=== PATIENT | male | born 1975 | race Caucasian/White ===

== ENCOUNTER → 2018-12-16 15:09 | Outpatient (CLI) | payer BC, SELFPAY ==
--- NOTE | 2018-12-16 15:11 | RAD_ITS ---
STUDY: X-RAY - LEFT KNEE REASON FOR EXAM: Male, 43 years old. Pain after a fall TECHNIQUE: 4 view(s) of the knee. COMPARISON: None. FINDINGS: Normal visualized distal femur. Normal visualized proximal tibia and fibula. Normal proximal tibiofibular articulation. There is a sclerotic bone island in the proximal tibia Normal medial femorotibial compartment. Normal lateral femorotibial compartment. Normal patellofemoral articulation. The soft tissue structures are unremarkable. RAD/Knee 4 or More Views IMPRESSION: Normal x-ray examination of the knee. Electronically Signed: Reese Cheney MD at 15:26 EDT , Service support ,
== END ==
PROVIDERS: Referring Provider Orthopaedic Surgery; Visit Provider Orthopaedic Surgery
DX: M25.562 Pain in left knee (principal)
CPT/HCPCS: 73564

== ENCOUNTER → 2019-02-01 11:11 | Outpatient (CLI) | payer BC, SELFPAY ==
--- NOTE | 2019-02-01 11:15 | MRI_ITS ---
STUDY: MRI LEFT KNEE REASON FOR EXAM: Joint pain, internal derangement. TECHNIQUE: Standardized fat and water weighted pulse sequences were obtained in all 3 orthogonal planes. COMPARISON: Radiographs 11/16/2018. FINDINGS: There is a small subtle oblique tear of the inferior articular surface of the posterior horn of the medial meniscus (proton density sagittal images 9, 10), a small radial tear of the body of the medial meniscus (proton-density sagittal image 9; T2 coronal image 15, 16) and mild fraying of the free margin of the posterior horn of the medial meniscus (proton density sagittal image 13). Normal hyaline cartilage of the medial femorotibial compartment. Normal medial femoral condyle and tibial plateau. There is mild periligamentous inflammation of the medial collateral ligament (T2 coronal image 15). Normal distal semimembranosus, gracilis and semitendinosus tendons. Normal lateral meniscus. Normal hyaline cartilage of the lateral femorotibial compartment. Normal lateral femoral condyle and tibial plateau. Normal proximal tibiofibular articulation. Normal lateral collateral (fibular) ligament. Normal popliteus tendon. Normal biceps femoris tendon. Normal anterior cruciate ligament (ACL). Normal posterior cruciate ligament (PCL). There is lateral tilt of the patella (T2 axial image 10) without patellar subluxation. Normal hyaline cartilage of the patellofemoral compartment. Normal medial and lateral patellar retinaculum. Normal visualized quadriceps tendon. Normal patellar tendon. Normal Hoffa's fat pad. There is no joint effusion. There is a minimal popliteal cyst (T2 coronal image 3). The otherwise visualized osseous structures are unremarkable. MRI/Lower Ext Joint Only (Routine) IMPRESSION: Small medial meniscal tears. Mild periligamentous inflammation of the medial collateral ligament. Lateral tilt of the patella. Electronically Signed: Seamus Sol MD at 12:39 EDT Tel , Service support ,
== END ==
PROVIDERS: Family Provider Internal Medicine; PCP Internal Medicine; Referring Provider Orthopaedic Surgery; Visit Provider Orthopaedic Surgery
DX: M23.92 Unspecified internal derangement of left knee (principal)
CPT/HCPCS: 73721